=== PATIENT | female | born 1995 | race Caucasian/White ===

== ENCOUNTER 2017-11-10 19:56 | Outpatient (CLI) | payer MEDICAID ==
[2017-11-10] MEDS: LACTATED RINGER'S 1,000 ML IV (21:50)
[2017-11-10] MEDS ORDERED: LACTATED RINGER'S 1,000 ML IV* (22:00)
[2017-11-10 23:55] LABS: ADD UMIC YES; UR ASCORBIC ACID NEGATIVE (NEGATIVE); UR BILIRUBIN (Dip) NEGATIVE (NEGATIVE); UR BLOOD (Dip) NEGATIVE (NEGATIVE); UR CLARITY CLEAR (CLEAR); UR COLOR YELLOW (YELLOW); UR GLUCOSE (Dip) NEGATIVE (NEGATIVE); UR KETONES (Dip) NEGATIVE (NEGATIVE); UR LEUKOCYTE ESTERASE (Dip) TRACE Leu/ul (NEGATIVE); UR NITRITE (Dip) NEGATIVE (NEGATIVE); UR RBC 0 /HPF (0-5); UR SPECIFIC GRAVITY (Dip) 1.006 (1.003-1.030); UR SQUAMOUS EPITHELIAL CELL FEW /HPF (FEW); UR TOTAL PROTEIN (Dip) NEGATIVE (NEGATIVE); UR UROBILINOGEN (Dip) NEGATIVE (NEGATIVE); UR WBC 1 /HPF (0-5)
== END 2017-11-11 00:36 | disposition home or self-care (01) ==
LOC: OBT 19:56 → L-D 19:59
DX: O62.9 Abnormality of forces of labor, unspecified (principal); Z3A.26 26 weeks gestation of pregnancy
CPT/HCPCS: 36415; 76815; 76817; 76818; 81001; 82731; 87086; 96360

== ENCOUNTER 2018-01-28 05:39 | Inpatient (IN) | payer MEDICAID ==
[2018-01-28] MEDS ORDERED: CARBOPROST 250 MCG INJ IM ×2 (06:00→12:30)
[2018-01-28] MEDS ORDERED: MISOPROSTOL 200 MCG TAB PR ×2 (06:00→12:30)
[2018-01-28] MEDS ORDERED: OXYTOCIN 30 UNITS/LR 500 ML IV ×2 (06:00→12:30)
[2018-01-28] MEDS ORDERED: METHYLERGONOVINE 0.2 MG INJ IM ×2 (06:00→12:30)
[2018-01-28] MEDS ORDERED: CEFAZOLIN 2 GM/50 ML (PMX) 50 ML IV (06:00)
[2018-01-28] MEDS: LACTATED RINGER'S 1,000 ML IV ×3 (06:18→18:19)
[2018-01-28 06:44] LABS: ADD MAN DIFF? NO
[2018-01-28 06:51] LABS: BASOPHILS % 0.4 % (0.0-2.0); EOSINOPHILS # 0.2 10^3/ul (0.0-0.5); EOSINOPHILS % 2.2 % (0.0-7.0); HEMATOCRIT 36.1 % (37.0-47.0); HEMOGLOBIN 12.1 g/dl (12.0-16.0); LYMPHOCYTES # 2.4 10^3/ul (0.8-2.9); LYMPHOCYTES % 24.7 % (15.0-51.0); MEAN CORPUSCULAR HEMOGLOBIN 28.3 pg (29.0-33.0); MEAN CORPUSCULAR HGB CONC 33.5 g/dl (32.0-37.0); MEAN CORPUSCULAR VOLUME 84.5 fl (82.0-101.0); MEAN PLATELET VOLUME 9.3 fl (7.4-10.4); MONOCYTE # 0.8 10^3/ul (0.3-0.9); MONOCYTES % 8.1 % (0.0-11.0); NEUTROPHIL # 6.2 10^3/ul (1.6-7.5); NEUTROPHILS % 63.9 % (39.0-77.0); PLATELET COUNT 224 10^3/UL (140-415); RED BLOOD COUNT 4.27 10^6/ul (4.20-5.40); RED CELL DISTRIBUTION WIDTH 14.6 % (11.5-14.5)
[2018-01-28 06:51] LABS: WHITE BLOOD COUNT 9.7 10^3/ul (4.8-10.8)
[2018-01-28] MEDS ORDERED: OXYTOCIN 30 UNITS/LR 500 ML BAG IV (07:00)
[2018-01-28 07:11] LABS: INR 0.89; PROTIME 12.1 Sec (11.9-14.9); PT RATIO 0.9
[2018-01-28 07:12] LABS: PARTIAL THROMBOPLASTIN TIME 29.6 Sec (25.0-35.0)
[2018-01-28] MEDS ORDERED: PHENYLephrine (100 MCG/ML) 10ML SYG ×2 (07:47→07:48)
[2018-01-28] MEDS ORDERED: morphine SULFATE/PF (10 MG/10 ML) INJ (07:47)
[2018-01-28] MEDS ORDERED: OXYTOCIN 10 UNIT INJ (07:47)
[2018-01-28] MEDS ORDERED: ONDANSETRON 4 MG INJ (07:47)
[2018-01-28 07:48] LABS: HEPATITIS B SURFACE ANTIGEN NEGATIVE (NEGATIVE)
[2018-01-28] MEDS ORDERED: BUPIVACAINE 0.75%/DEXT (SPINAL) 2 ML INJ (07:48)
[2018-01-28] MEDS: OXYTOCIN 30 UNITS/LR 500 ML IV ×3 (10:00→16:22)
[2018-01-28] MEDS ORDERED: NALOXONE (0.4 MG/ML) INJ IV (12:30)
[2018-01-28] MEDS ORDERED: morphine 2 MG INJ IV (12:30)
[2018-01-28] MEDS ORDERED: LANOLIN 7 GM TUBE TOP (12:30)
[2018-01-28] MEDS ORDERED: ONDANSETRON 4 MG INJ IV (12:30)
[2018-01-28] MEDS ORDERED: DIPHENHYDRAMINE 50 MG INJ IV (12:30)
[2018-01-28] MEDS ORDERED: HYDROCODONE/APAP (5/325) TAB PO (12:30)
[2018-01-28 15:24] LABS: RAPID PLASMA REAGIN NONREACTIVE (NR)
[2018-01-28] MEDS: CEFAZOLIN 1 GM/50 ML (PMX) 50 ML IVPB (16:55)
[2018-01-28] MEDS: SENNA/DOCUSATE NA (8.6MG/50MG) TAB PO (21:27)
[2018-01-29] MEDS: LACTATED RINGER'S 1,000 ML IV (02:31)
[2018-01-29] MEDS: KETOROLAC 30 MG INJ IV (06:56)
[2018-01-29 07:29] LABS: ADD MAN DIFF? NO
[2018-01-29 07:36] LABS: BASOPHILS % 0.1 % (0.0-2.0); EOSINOPHILS # 0.2 10^3/ul (0.0-0.5); EOSINOPHILS % 1.3 % (0.0-7.0); HEMATOCRIT 36.7 % (37.0-47.0); HEMOGLOBIN 12.1 g/dl (12.0-16.0); LYMPHOCYTES # 1.8 10^3/ul (0.8-2.9); LYMPHOCYTES % 12.7 % (15.0-51.0); MEAN CORPUSCULAR HEMOGLOBIN 27.8 pg (29.0-33.0); MEAN CORPUSCULAR VOLUME 84.4 fl (82.0-101.0); MEAN PLATELET VOLUME 9.4 fl (7.4-10.4); NEUTROPHILS % 78.3 % (39.0-77.0); PLATELET COUNT 221 10^3/UL (140-415); RED BLOOD COUNT 4.35 10^6/ul (4.20-5.40); RED CELL DISTRIBUTION WIDTH 14.6 % (11.5-14.5)
[2018-01-29 07:36] LABS: WHITE BLOOD COUNT 14.1 10^3/ul (4.8-10.8)
[2018-01-29] MEDS: SENNA/DOCUSATE NA (8.6MG/50MG) TAB PO ×2 (09:03→21:23)
[2018-01-29] MEDS: IBUPROFEN 600 MG TAB PO ×2 (12:41→17:44)
[2018-01-29] MEDS: HYDROCODONE/APAP (5/325) TAB PO (23:03)
[2018-01-30] MEDS: IBUPROFEN 600 MG TAB PO ×5 (00:11→23:33)
[2018-01-30] MEDS: SENNA/DOCUSATE NA (8.6MG/50MG) TAB PO ×2 (10:13→21:27)
[2018-01-30] MEDS: OXYCODONE/ACETAMINOPHEN (5/325) TAB PO ×2 (10:16→19:40)
[2018-01-30] MEDS: LANOLIN 7 GM TUBE TOP (16:26)
[2018-01-31] MEDS: OXYCODONE/ACETAMINOPHEN (5/325) TAB PO ×2 (04:55→08:58)
[2018-01-31] MEDS: IBUPROFEN 600 MG TAB PO ×2 (06:00→11:26)
[2018-01-31] MEDS: SENNA/DOCUSATE NA (8.6MG/50MG) TAB PO (08:58)
[2018-01-31] MEDS: DIPHTH/TET/ACEL PERTUSS (ADULT) 0.5 ML VIAL IM* (12:36)
== END 2018-01-31 14:40 | disposition home or self-care (01) | DRG 766 ==
LOC: L-D 05:39 → PP1 11:35
PROVIDERS: Obstetrics & Gynecology
PROC: 10D00Z1 Extraction of Products of Conception, Low, Open Approach (ICD-10-PCS; principal; 2018-01-28 07:30)
PROC: 3E033VJ Introduction of Other Hormone into Peripheral Vein, Percutaneous Approach (ICD-10-PCS; 2018-01-28 07:30)
DX: O34.211 Maternal care for low transverse scar from previous cesarean delivery (principal); Z3A.39 39 weeks gestation of pregnancy; Z37.0 Single live birth
CPT/HCPCS: 85025; 85610; 85730; 86592; 86850; 86900; 86901; 87340; 88304; 90715; 99464

== ENCOUNTER 2018-05-04 10:43 | Emergency (ER) | payer MEDICAID ==
[2018-05-04 12:11] LABS: URINE BLOOD (Dip) POC 1+ (NEGATIVE); URINE GLUCOSE (Dip) POC Negative (NEGATIVE); URINE KETONES (Dip) POC Negative (NEGATIVE); URINE LEUKOCYTE EST (Dip) POC 3+ (NEGATIVE); URINE NITRITE (Dip) POC Negative (NEGATIVE); URINE TOTAL PROTEIN POC 2+ (NEGATIVE)
== END 2018-05-04 12:50 | disposition home or self-care (01) ==
LOC: FTE 10:43
DX: N39.0 Urinary tract infection, site not specified (principal)
CPT/HCPCS: 81003; 81025; 99283